=== PATIENT | female | born 1990 | race American Indian/Alaskan Native ===

== ENCOUNTER 2016-12-08 13:09 | Emergency (ER) | payer MEDICAID ==
[2016-12-08 13:17] VITALS: O2SAT 100
[2016-12-08] MEDS ORDERED: Sodium Chloride 0.9% 1,000 ML IV ONE (13:27)
[2016-12-08] MEDS ORDERED: Sodium Chloride 0.9% 1,000 ML ONE (13:31)
--- NOTE | 2016-12-08 13:38 | C.PDOC ---
History Of Present Illness 26 year old female, with no significant PMHx, presents to the ED for evaluation of generalized weakness and lightheadedness which began yesterday. Patient reports she had two syncopal episodes yesterday, each lasting a few seconds in duration. Patient also reports nausea and two episodes of vomiting. Patient denies fever, chills, abdominal pain, diarrhea, seizures, sick contacts, or prior history of similar symptoms. LMP was during first week of November. Time Seen by Provider: 12/08/16 13:23 Chief Complaint (Nursing): GI Problem History Per: Patient History/Exam Limitations: no limitations Onset/Duration Of Symptoms: Hrs Current Symptoms Are (Timing): Still Present Number Of Syncopal Episodes: 2 Associated Symptoms Preceding Syncopal Episode: Lightheadedness Fall Associated With With Symptoms: No Injury As Result Of Fall Additional History Per: Patient Past Medical History Reviewed: Historical Data, Nursing Documentation, Vital Signs Vital Signs: Last Vital Signs Temp 98.1 F 12/08/16 13:13 Pulse 87 12/08/16 13:13 Resp 16 12/08/16 13:13 BP 105/70 12/08/16 13:13 Pulse Ox 100 12/08/16 14:00 - Medical History PMH: No Chronic Diseases Surgical History: No Surg Hx Family History: States: Unknown Family Hx - Social History Hx Alcohol Use: No Hx Substance Use: No - Immunization History Hx Tetanus Toxoid Vaccination: No Hx Influenza Vaccination: No Hx Pneumococcal Vaccination: No Review Of Systems Constitutional: Positive for: Weakness. Negative for: Fever, Chills Gastrointestinal: Positive for: Nausea, Vomiting. Negative for: Abdominal Pain , Diarrhea Neurological: Positive for: Other (lightheadedness ). Negative for: Seizures Physical Exam - Physical Exam Appears: Non-toxic, No Acute Distress Skin: Normal Color, Warm, Dry Head: Atraumatic, Normacephalic Eye(s): bilateral: Normal Inspection, PERRL, EOMI Oral Mucosa: Moist Neck: Supple Chest: Symmetrical, No Deformity, No Tenderness Cardiovascular: Rhythm Regular, No Murmur Respiratory: Normal Breath Sounds, No Rales, No Rhonchi, No Wheezing Gastrointestinal/Abdominal: Soft, No Tenderness, No Guarding, No Rebound Extremity: Normal ROM, Capillary Refill (less than 2 seconds ) Neurological/Psych: Oriented x3, Normal Speech, Normal Cognition Gait: Steady ED Course And Treatment - Laboratory Results Result Diagrams: 12/08/16 13:39 12/08/16 13:39 Lab Interpretation: No Acute Changes Urine POC: Negative O2 Sat by Pulse Oximetry: 100 (on RA) Pulse Ox Interpretation: Normal Progress Note: Bloodwork and urinalysis ordered and reviewed. Zofran IVP and IV Fluids administered. Reevaluation Time: 15:34 Reassessment Condition: Improved (after IV Zofran and fluids.) Disposition Counseled Patient/Family Regarding: Studies Performed, Diagnosis, Need For Followup, Rx Given - Disposition Referrals: [facility] [Outside] Disposition: HOME/ ROUTINE Disposition Time: 15:36 Condition: IMPROVED Prescriptions: Ondansetron ODT [Zofran ODT] 1 odt PO BID PRN #6 odt PRN Reason: Nausea/Vomiting Instructions: Acute Nausea and Vomiting (ED), Syncope (ED) Forms: [facility] [employer] [facility] (Eritrean) - Clinical Impression Clinical Impression: Nausea and vomiting, Syncope - Scribe Statement The provider has reviewed the documentation as recorded by the Scribe (Geno Rousseau) Provider Attestation: All medical record entries made by the Scribe were at my direction and personally dictated by me. I have reviewed the chart and agree that the record accurately reflects my personal performance of the history, physical exam, medical decision making, and the department course for this patient. I have also personally directed, reviewed, and agree with the discharge instructions and disposition.
[2016-12-08 13:45] LABS: BASO % 0.3 % (0.0-2.0); HEMATOCRIT 38.2 % (34.0-47.0); LYMPH # 1.3 K/uL (1.0-4.3); LYMPH % 13.1 % (20.0-40.0); MEAN CELL VOLUME 92.6 fL (81.0-99.0); MEAN CORPUSCULAR HEMOGLOBIN 31.7 pg (27.0-31.0); MEAN CORPUSCULAR HGB CONC 34.2 g/dL (33.0-37.0); MEAN PLATELET VOLUME 8.7 fL (7.2-11.7); MONO # 0.2 K/uL (0.0-0.8); MONO % 2.5 % (0.0-10.0); RED CELL DISTRIBUTION WIDTH 13.5 % (11.5-14.5); WHITE BLOOD COUNT 9.8 K/uL (4.8-10.8)
[2016-12-08 14:04] LABS: CHLORIDE 99 mmol/L (98-107); POTASSIUM 3.6 mmol/L (3.6-5.2); SODIUM 135 mmol/L (132-148)
[2016-12-08 14:06] LABS: GFR AFRICAN-AMERICAN > 60
[2016-12-08 14:07] LABS: ALKALINE PHOSPHATASE 91 U/L (38-126); ALT/SGPT 32 U/L (9-52); AST/SGOT 17 U/L (14-36); BILIRUBIN,TOTAL 0.8 mg/dL (0.2-1.3); BLOOD UREA NITROGEN 6 mg/dL (7-17); CARBON DIOXIDE 22 mmol/L (22-30); GLUCOSE,RANDOM 83 mg/dL (65-105); TOTAL PROTEIN 8.7 g/dL (6.3-8.3)
[2016-12-08 14:08] LABS: CALCIUM 9.1 mg/dl (8.6-10.4)
[2016-12-08 15:26] LABS: RBC URINE 1 /hpf (0-3); URINE BACTERIA RARE (<OCC); URINE BILIRUBIN NEGATIVE (NEGATIVE); URINE BLOOD NEGATIVE (NEGATIVE); URINE COLOR Straw (YELLOW); URINE GLUCOSE (UA) NORMAL (Normal); URINE KETONE TRACE mg/dL (NEGATIVE); URINE LEUKOCYTE ESTERASE NEG Leu/uL (Negative); URINE PROTEIN NEGATIVE (NEGATIVE); URINE UROBILINOGEN NORMAL mg/dL (0.2-1.0); WBC URINE 1 /hpf (0-5)
[2016-12-08 15:46] VITALS: BP 90/51; PULSE 69; RESP 18; TEMP 97.9
== END 2016-12-08 15:47 | disposition home or self-care (01) ==
LOC: C.ER 13:09
DX: R11.2 Nausea with vomiting, unspecified (principal); R55 Syncope and collapse
CPT/HCPCS: 80053; 81001; 84703; 85025; 96361; 96374; 99285; J2405; J7040

== ENCOUNTER 2016-12-12 11:52 | Emergency (ER) | payer MEDICAID ==
[2016-12-12 12:05] VITALS: RESP 18; O2SAT 100
--- NOTE | 2016-12-12 13:29 | C.PDOC ---
History Of Present Illness 26 year old female presents to the ED via EMS for evaluation of generalized weakness after she was exposed to carbon monoxide at her home. Patient notes she has been staying home for the past couple days with her windows closed. Patient states she was seen in the ED for complaints of abdominal pain, but denies such symptoms currently. Patient denies headache, dizziness, nausea, vomiting at this time. Time Seen by Provider: 12/12/16 12:00 Chief Complaint (Nursing): Abdominal Pain History Per: Patient, EMS History/Exam Limitations: no limitations Onset/Duration Of Symptoms: Hrs Current Symptoms Are (Timing): Still Present Additional History Per: Patient Past Medical History Reviewed: Historical Data, Nursing Documentation, Vital Signs Vital Signs: Last Vital Signs Temp 97.8 F 12/12/16 12:04 Pulse 85 12/12/16 12:04 Resp 18 12/12/16 13:38 BP 125/81 12/12/16 12:04 Pulse Ox 100 12/12/16 13:42 - Medical History PMH: No Chronic Diseases Surgical History: No Surg Hx Family History: States: Unknown Family Hx - Social History Hx Alcohol Use: No Hx Substance Use: No - Immunization History Hx Tetanus Toxoid Vaccination: No Hx Influenza Vaccination: No Hx Pneumococcal Vaccination: No Review Of Systems Constitutional: Positive for: Weakness Gastrointestinal: Negative for: Nausea, Vomiting, Abdominal Pain Neurological: Negative for: Headache, Dizziness Physical Exam - Physical Exam Appears: Non-toxic, No Acute Distress Skin: Normal Color, Warm, Dry Head: Atraumatic, Normacephalic Eye(s): bilateral: Normal Inspection Oral Mucosa: Moist Neck: Supple Chest: Symmetrical, No Deformity, No Tenderness Cardiovascular: Rhythm Regular, No Murmur Respiratory: Normal Breath Sounds, No Rales, No Rhonchi, No Wheezing Extremity: Normal ROM, Capillary Refill (less than 2 seconds ) Neurological/Psych: Oriented x3, Normal Speech, Normal Cognition Gait: Steady ED Course And Treatment O2 Sat by Pulse Oximetry: 100 (on RA) Pulse Ox Interpretation: Normal Disposition - Disposition Referrals: [facility] [Outside] Disposition: HOME/ ROUTINE Disposition Time: 13:26 Condition: STABLE Additional Instructions: Do not go back to that home with the carbon monoxide leak. Follow up with your doctor or the clinic. Instructions: Carbon Monoxide Poisoning (ED) Forms: [employer] (Bulgarian) - Clinical Impression Clinical Impression: Carbon monoxide exposure - Scribe Statement The provider has reviewed the documentation as recorded by the Scribe (Geno Rousseau) Provider Attestation: All medical record entries made by the Scribe were at my direction and personally dictated by me. I have reviewed the chart and agree that the record accurately reflects my personal performance of the history, physical exam, medical decision making, and the department course for this patient. I have also personally directed, reviewed, and agree with the discharge instructions and disposition.
[2016-12-12 13:57] VITALS: BP 127/74; PULSE 59; TEMP 98
== END 2016-12-12 13:38 | disposition home or self-care (01) ==
LOC: C.ER 11:52
DX: Z77.29 Contact with and (suspected) exposure to other hazardous substances (principal)

== ENCOUNTER 2018-03-01 16:04 | Emergency (ER) | payer MEDICAID ==
[2018-03-01 16:20] VITALS: BP 95/65; PULSE 77; RESP 18; TEMP 97.5; O2SAT 100
[2018-03-01 17:43] LABS: SQUAMOUS EPITHIAL 3 /hpf (0-5); URINE BACTERIA OCC (<OCC); URINE BILIRUBIN NEGATIVE (NEGATIVE); URINE BLOOD NEGATIVE (NEGATIVE); URINE CLARITY Hazy (Clear); URINE COLOR Yellow (YELLOW); URINE GLUCOSE (UA) NORMAL (Normal); URINE LEUKOCYTE ESTERASE NEG Leu/uL (Negative); URINE PROTEIN NEGATIVE (NEGATIVE); URINE UROBILINOGEN NORMAL mg/dL (0.2-1.0)
--- NOTE | 2018-03-01 17:57 | C.PDOC ---
History Of Present Illness 27 year old female presents to the emergency department with complaints of 5 months of itching around her anus. Patient states that she was evaluated at [facility] in September, and does not know what she was diagnosed with. Patient states that she feels as if she has the same itch in her vaginal area. She also reports not being able to have a bowel movement since Friday, and states that she has pain to her left upper quadrant. Patient denies nausea, vomiting, diarrhea, abnormal bleeding, and urinary symptoms. Patient's PMD is Dr. Kelly De La Cruz. Time Seen by Provider: 03/01/18 16:58 Chief Complaint (Nursing): GI Problem History Per: Patient History/Exam Limitations: no limitations Onset/Duration Of Symptoms: Other (5 months) Current Symptoms Are (Timing): Still Present Location Of Pain/Discomfort: LUQ Quality Of Discomfort: "Pain" Associated Symptoms: Constipation Past Medical History Reviewed: Historical Data, Nursing Documentation, Vital Signs Vital Signs: Last Vital Signs Temp 97.5 F L 03/01/18 16:15 Pulse 77 03/01/18 16:15 Resp 18 03/01/18 16:15 BP 95/65 L 03/01/18 16:15 Pulse Ox 100 03/01/18 16:15 - Medical History PMH: No Chronic Diseases Surgical History: No Surg Hx Family History: States: No Known Family Hx - Social History Hx Alcohol Use: No Hx Substance Use: No - Immunization History Hx Tetanus Toxoid Vaccination: No Hx Influenza Vaccination: No Hx Pneumococcal Vaccination: No Review Of Systems Except As Marked, All Systems Reviewed And Found Negative. Gastrointestinal: Positive for: Abdominal Pain, Other (anal itch). Negative for: Nausea, Vomiting, Diarrhea Physical Exam - Physical Exam Appears: Non-toxic, No Acute Distress Skin: Normal Color, Warm, Dry Head: Atraumatic, Normacephalic Eye(s): bilateral: Normal Inspection, PERRL, EOMI Nose: Normal Oral Mucosa: Moist Neck: Normal, Supple Chest: Symmetrical, No Tenderness Cardiovascular: Rhythm Regular, No Murmur Respiratory: Normal Breath Sounds, No Rales, No Rhonchi, No Wheezing Gastrointestinal/Abdominal: Soft, No Tenderness, No Guarding, No Rebound Rectal: No Other (no rash, no erythema, no vesicles or pustules. [employer] Machinist AMISH Rascon) Neurological/Psych: Oriented x3, Normal Speech, Normal Cognition ED Course And Treatment - Laboratory Results Lab Results: Urine Color Yellow (YELLOW) 03/01/18 17:38 Urine Clarity Hazy (Clear) 03/01/18 17:38 Urine pH 6.0 (5.0-8.0) 03/01/18 17:38 Ur Specific Decker 1.011 (1.003-1.030) 03/01/18 17:38 Urine Protein Negative mg/dL (NEGATIVE) 03/01/18 17:38 Urine Glucose (UA) Normal mg/dL (Normal) 03/01/18 17:38 Urine Ketones Negative mg/dL (NEGATIVE) 03/01/18 17:38 Urine Blood Negative (NEGATIVE) 03/01/18 17:38 Urine Nitrate Negative (NEGATIVE) 03/01/18 17:38 Urine Bilirubin Negative (NEGATIVE) 03/01/18 17:38 Urine Urobilinogen Normal mg/dL (0.2-1.0) 03/01/18 17:38 Ur Leukocyte Esterase Neg Alberto/uL (Negative) 03/01/18 17:38 Urine WBC (Auto) 2 /hpf (0-5) 03/01/18 17:38 Urine RBC (Auto) 1 /hpf (0-3) 03/01/18 17:38 Ur Squamous Epith Cells 3 /hpf (0-5) 03/01/18 17:38 Urine Bacteria Occ (<OCC) H 03/01/18 17:38 O2 Sat by Pulse Oximetry: 100 (RA) Pulse Ox Interpretation: Normal Medical Decision Making Medical Decision Making: Plan: POC Urine Urinalysis Patient increased fiber intake and is still constipated. Patient suggested to use over the counter laxatives such as Miralax. Patient instructed to f/u with Dr. De La Cruz. Disposition Counseled Patient/Family Regarding: Studies Performed, Diagnosis, Need For Followup - Disposition Referrals: Rose Mary De La Cruz MD [Staff Provider] - Disposition: HOME/ ROUTINE Disposition Time: 17:56 Condition: STABLE Additional Instructions: MARISA MICHAEL, thank you for letting us take care of you today. Your provider was Lidia Sanchez MD and you were treated for ABDOMINAL PAIN. The emergency medical care you received today was directed at your acute symptoms. If you were prescribed any medication, please fill it and take as directed. It may take several days for your symptoms to resolve. Return to the Emergency Department if your symptoms worsen, do not improve, or if you have any other problems. Please contact your doctor in 1-2 days for a follow up appointment. Bring any paperwork you were given at discharge with you along with any medications you are taking to your follow up visit. Our treatment cannot replace ongoing medical care by a primary care provider outside of the emergency department. Thank you for allowing the [facility] team to be part of your care today. Instructions: Constipation, Adult (DC), Acute Abdomen (Belly Pain), Adult (DC) Forms: [employer] [facility] (Sudanese), General Discharge Instructions - POA Present On Arrival: None - Clinical Impression Clinical Impression: Abdominal pain, Skin irritation, Constipation - Scribe Statement The provider has reviewed the documentation as recorded by the Scribe (Michael Matos) Provider Attestation: All medical record entries made by the Scribe were at my direction and personally dictated by me. I have reviewed the chart and agree that the record accurately reflects my personal performance of the history, physical exam, medical decision making, and the department course for this patient. I have also personally directed, reviewed, and agree with the discharge instructions and disposition.
== END 2018-03-01 18:12 | disposition home or self-care (01) ==
LOC: C.ER 16:04
DX: K59.00 Constipation, unspecified (principal); R10.9 Unspecified abdominal pain; L98.9 Disorder of the skin and subcutaneous tissue, unspecified

== ENCOUNTER 2018-04-09 12:55 | Inpatient (IN) | payer MEDICAID ==
[2018-04-09 13:01] VITALS: BMI 18.8
[2018-04-09 15:34] LABS: BASO % 0.4 % (0.0-2.0); HEMOGLOBIN 13.2 g/dL (11.0-16.0); LYMPH # 1.3 K/uL (1.0-4.3); LYMPH % 14.7 % (20.0-40.0); MEAN CELL VOLUME 94.3 fL (81.0-99.0); MEAN CORPUSCULAR HEMOGLOBIN 31.1 pg (27.0-31.0); MEAN PLATELET VOLUME 8.2 fL (7.2-11.7); MONO # 0.3 K/uL (0.0-0.8); MONO % 3.7 % (0.0-10.0); NEUT # 7.4 K/uL (1.8-7.0); NEUT % 81.2 % (50.0-75.0); RBC 4.23 Mil/uL (3.80-5.20); RED CELL DISTRIBUTION WIDTH 13.4 % (11.5-14.5); WHITE BLOOD COUNT 9.1 K/uL (4.8-10.8)
--- NOTE | 2018-04-09 15:35 | C.PDOC ---
History Of Present Illness 27 y/o F BIBEMS for suicidal ideations. Patient posted a tweet on Twitter expressing suicidal thoughts. Another individual saw the post and contacted 911. The patient states in the ED that she has been having suicidal thoughts. Will not discuss further about any plan. She refuses to provide blood work and urine willingly but stated that she will allow us to draw it without physical restraint, stating that it will be against her will. She says, "You can beat me!" Full HPI/ROS unobtainable secondary to patient's lack of cooperation. Patient asked for police district switchboard operator to be called to ED to inform her that drawing blood work and urine against her will in a psychiatric setting is legal. Time Seen by Provider: 04/09/18 13:28 Chief Complaint (Nursing): Psychiatric Evaluation Past Medical History Vital Signs: Last Vital Signs Temp 98.7 F 04/09/18 13:31 Pulse 91 H 04/09/18 13:31 Resp 16 04/09/18 13:31 BP 119/81 04/09/18 13:31 Pulse Ox 100 04/09/18 13:31 Family History: States: Unknown Family Hx - Social History Hx Alcohol Use: No Hx Substance Use: No - Immunization History Hx Tetanus Toxoid Vaccination: No Hx Influenza Vaccination: No Hx Pneumococcal Vaccination: No Review Of Systems Review Of Systems: ROS cannot be obtained secondary to pt's inabilty to answer questions. Physical Exam - Physical Exam Additional Physical Exam Comments: Gen: No acute distress Head: NC/AT Eyes: No icterus ENT: MMM CV: Regular rate Resp: No accessory muscle use Skin: No facial rash Extremities: No deformity Neuro: Alert ED Course And Treatment - Laboratory Results Result Diagrams: 04/09/18 15:29 04/09/18 15:29 O2 Sat by Pulse Oximetry: 100 Medical Decision Making Medical Decision Making: Medically cleared. Disposition - Disposition Disposition: HOSPITALIZED Disposition Time: 16:30 Condition: GOOD Forms: [facility] (Andorran) - Clinical Impression Clinical Impression: Major depressive disorder, recurrent episode, severe, with psychotic behavior
[2018-04-09 15:44] LABS: ALB/GLOB RATIO 1.3 (1.0-2.1); ALBUMIN 5.2 g/dL (3.5-5.0); ALT/SGPT 7 U/L (9-52); AST/SGOT 18 U/L (14-36); BLOOD UREA NITROGEN 7 mg/dL (7-17); CALCIUM 9.8 mg/dl (8.6-10.4); GFR NON-AFRICAN AMERICAN > 60
[2018-04-09 16:35] LABS: HCG,QUALITATIVE URINE NEGATIVE (NEGATIVE)
[2018-04-09 16:39] LABS: SQUAMOUS EPITHIAL 3 /hpf (0-5); URINE BACTERIA RARE (<OCC); URINE BILIRUBIN NEGATIVE (NEGATIVE); URINE BLOOD 1+ (NEGATIVE); URINE CLARITY Hazy (Clear); URINE COLOR Yellow (YELLOW); URINE GLUCOSE (UA) NORMAL (Normal); URINE LEUKOCYTE ESTERASE NEG Leu/uL (Negative); URINE PROTEIN NEGATIVE (NEGATIVE); URINE UROBILINOGEN NORMAL mg/dL (0.2-1.0)
[2018-04-09 17:03] LABS: BARBITURATES, UR NEGATIVE (NEGATIVE); BENZODIAZEPINES, UR NEGATIVE (NEGATIVE); OPIATES, UR NEGATIVE (NEGATIVE); PHENCYCLIDINE, UR NEGATIVE (NEGATIVE)
--- NOTE | 2018-04-09 22:45 | PCM.BM ---
<Vikram De Oliveira - Last Filed: 04/09/18 22:43> Treatment Plan Problems - Problems identified on initial assessmt Ineffective Coping Date Initiated: 04/09/18 Time Initiated: 18:45 Assessment reference: NA Status: Active Suicidal Date Initiated: 04/09/18 Time Initiated: 18:45 Assessment reference: NA Status: Active Treatment assets and liabiliti Patient Assests: ADL independent, negotiates basic needs Patient Liabilities: poor support system - Milieu Protocol Maintain good personal hygiene: daily Encourage regular showers, daily Remind patient to perform daily oral care, every shift Assist patient to perform ADL's Conduct patient checks and document Observation sheet: Q15 minutes Maintain personal safety: every shift Educate patient to report safety concerns to staff, every shift Monitor environment for contraband/sharps Medication safety: Monitor for expected outcome, potential side effects: every shift, Assess barriers to learning: every shift, Assess readiness for medication education: every shift <Reena Collins - Last Filed: 04/10/18 11:18> - Diagnosis (1) Schizophrenia Status: Acute Interventions: 04/10/18 11:18 * Assess/adjust medications daily and /or as needed * See patient on an individual basis 7x/week to assess status of hallucinations * Discuss risks, benefits, side effects and alternatives of medications * <Hailey Baldwin - Last Filed: 04/10/18 14:12> Family Contact Family involvement: Family/SO is involved Family contact: Patient agrees to contact, Family has been contacted by patient - Goals for Treatment Patient goals for treatment: "I want to go to an outpatient program." Discharge/Continuing Care - Education Needs Education Needs: Patient Medication, Patient Diagnosis/Disease Process, Patient Coping Skills, Patient Placement options, Patient Community resources - Discharge Discharge Criteria: Free of Suicidal thoughts, Normal sleep pattern, Ability to care for self, No longer exhibiting s/s of withdrawal, Reduction of target symp toms Discharge to:: Home, With Family - Treatment Team Participation Discussed with Family/SO: No Was Patient/Family/SO present at Treatment Team Meeting: Yes
--- NOTE | 2018-04-10 11:00 | PCM.PSYCH ---
Initial Psychiatric Evaluation - Initial Psychiatric Evaluation Type of Admission: Voluntary Legal Status: Capacity Chief Complaint (in patient's own words): I was feeling depressed and suicidal. History of Present Illness and Precipitating Events: Patient is a 27 year old -[place] female, who was escorted to the ED by EMS after making suicidal statement on social media/Twitter. Patient appeared disorganized and internally preoccupied throughout the interview. She appeared to have loose associations. She reports history of one inpatient psychiatric hospitalization at [facility] as per the [facility] last year. She stopped taking her medications, as per the patient. She remains suspicious, paranoid and delusional. She was superficially cooperative but guarded but the details. She was a poor historian. Patient reports of having PTSD secondary to trauma she experienced at [facility] six months ago. Patient remained guarded but the details of the trauma and mentioned that it was all in her medical records. She reports depressed mood and at times feelings of hopelessness and worthlessness. She reports sleep and poor appetite. She also reports paranoia but denies any auditory of visual hallucinations. When asked about any history of abuse she would not answer and stared blankly ahead for 2 minutes. She denies any drinking or any substance abuse. Past medical history None reported Current Medications: Active Medications Generic Name Dose Route Start Last Admin Trade Name Freq PRN Reason Stop Dose Admin Pneumococcal Polyvalent Vaccine 0.5 ml 04/12/18 10:00 Pneumovax 23 Vaccine IM 04/12/18 10:01 .ONCE ONE Past Psychiatric History - Past Psychiatric History Previous Treatment History: Inpatient Pertinent Medical Hx (Current Medical&Sleep Prob, Allergies): Allergies Allergy/AdvReac Type Severity Reaction Status Date / Time No Known Allergies Allergy Verified 04/09/18 13:00 No Known Home Med 04/09/18 Review of Systems - Review of Systems All systems: reviewed and no additional remarkable complaints except - Psychiatric Psychiatric: Anxiety, Irritability, Suicidal Ideation Mental Status Examination - Personal Presentation Personal Presentation: Looks stated age - Affect Affect: Constricted, Depressed - Motor Activity Motor Activity: Calm - Reliability in Providing Information Reliability in Providing Information: Poor, due to alteration in thoughts, Poor, due to altered mood - Speech Speech: Disorganized - Mood Mood: Anxious - Formal Thought Process Formal Thought Process: Delusions, Paranoia, Loosening of associations - Obsessions/Compulsions Obsessions: No Compulsions: No - Cognitive Functions Orientation: Person, Place, Situation, Time Sensorium: Alert Attention/Concentration: Attentive Abstract Thinking: [place] Estimate of Intelligence: Below average Judgement: Imparied, as evidence by: Poor judgement, Imparied, as evidence by: Lack of insight into illness - Risk Risk: Suicidal, Diminished functioning - Limitations Limitations: Living alone DSM 5 DX - DSM 5 DSM 5 Diagnosis: Schizoaffective disorder depressive type - Recommended/Plan of Treatment Treatment Recommendations and Plan of Treatment: Schizoaffective disorder depressive type -CBT -Psychoeducation -Supportive therapy and group therapy -Olanzapine for psychosis -Neurontin for augmentation -Trazodone for insomnia -Remeron for depression - Smoking Cessation Smoking Cessation Initiated: No
[2018-04-12] MEDS ORDERED: Pneumococcal 23-Valent Vaccine IM ONE (10:00)
--- NOTE | 2018-04-13 09:51 | PCM.BM ---
Treatment Plan Problems - Problems identified on initial assessmt Ineffective Coping Date Initiated: 04/09/18 Time Initiated: 18:45 Assessment reference: NA Status: Active Suicidal Date Initiated: 04/09/18 Time Initiated: 18:45 Assessment reference: NA Status: Active Treatment assets and liabiliti Patient Assests: ADL independent, negotiates basic needs Patient Liabilities: poor support system - Milieu Protocol Maintain good personal hygiene: daily Encourage regular showers, daily Remind patient to perform daily oral care, every shift Assist patient to perform ADL's Conduct patient checks and document Observation sheet: Q15 minutes Maintain personal safety: every shift Educate patient to report safety concerns to staff, every shift Monitor environment for contraband/sharps Medication safety: Monitor for expected outcome, potential side effects: every shift, Assess barriers to learning: every shift, Assess readiness for medication education: every shift Milieu Narrative: Schizoaffective disorder depressive type -CBT -Psychoeducation -Supportive therapy and group therapy -Olanzapine for psychosis -Neurontin for augmentation -Trazodone for insomnia -Remeron for depression Family Contact Family involvement: Family/SO is involved Family contact: Patient agrees to contact, Family has been contacted by patient - Goals for Treatment Patient goals for treatment: "I want to go to an outpatient program." Discharge/Continuing Care - Education Needs Education Needs: Patient Medication, Patient Diagnosis/Disease Process, Patient Coping Skills, Patient Placement options, Patient Community resources - Discharge Discharge Criteria: Free of Suicidal thoughts, Normal sleep pattern, Ability to care for self, No longer exhibiting s/s of withdrawal, Reduction of target symptoms Discharge to:: Home, With Family - Treatment Team Participation Patient/Family/SO Statement: Schizoaffective disorder depressive type -CBT -Psychoeducation -Supportive therapy and group therapy -Olanzapine for psychosis -Neurontin for augmentation -Trazodone for insomnia -Remeron for depression Discussed with Family/SO: No Was Patient/Family/SO present at Treatment Team Meeting: Yes Treatment Plan Review - Problem Ineffective Coping Time Initiated: 18:45 Suicidal Time Initiated: 18:45 - Discharge / Continuing Care Discharge to:: Home, With Family Behavioral Health Services: Intensive Outpatient Health Needs: Follow up care/test, Medications/Rx
--- NOTE | 2018-04-13 10:48 | PCM.PYCHPN ---
Psychiatric Progress Note - Psychiatric Progress Note Patient seen today, length of contact: 15 min Patient Chief Complaint: I m feeling little better.' Problems Identified/Issues Discussed: Patient was seen and evaluated, chart reviewed and discussed the staff. As per the staff he remained isolative and withdrawn and appears paranoid and delusional. She still appears somewhat disorganized and internally preoccupied. She is taking medication but denies any side effects. Symptoms are improving gradually but she needs to stay longer for the stabilization. Supportive therapy was given. Medication Change: Yes Medical Record Reviewed: Yes Mental Status Examination - Cognitive Function Orientation: Person, Place, Situation, Time Memory: Intact Attention: WNL Concentration: Poor Association: Loose Fund of Knowledge: Poor - Mood Mood: Anxious - Affect Affect: Constricted, Depressed - Formal Thought Process Formal Thought Process: Delusions, Paranoia, Loosening of associations - Suicidal Ideation Suicidal Ideation: No - Homicidal Ideation Homicidal Ideation: No Goal/Treatment Plan - Goal/Treatment Plan Need for Continued Stay: Remain at risks for inpatient hospitalization Progress Toward Problem(s) and Goals/Treatment Plan: Schizoaffective disorder depressive type -CBT -Psychoeducation -Supportive therapy and group therapy -Olanzapine for psychosis -Neurontin for augmentation -Trazodone for insomnia -Remeron for depression
[2018-04-14] MEDS ORDERED: DiphenhydrAMINE 50 mg/ml Inj IM PRN (12:18)
--- NOTE | 2018-04-16 10:57 | PCM.PYCHPN ---
Psychiatric Progress Note - Psychiatric Progress Note Patient seen today, length of contact: 15 min Patient Chief Complaint: I m feeling little better.' Problems Identified/Issues Discussed: Patient was seen and evaluated, chart reviewed and discussed the staff. She still appears somewhat disorganized and internally preoccupied. As per the staff he remained isolative and withdrawn and appears paranoid and delusional. She is taking medication but denies any side effects. Symptoms are improving gradually but she needs to stay longer for the stabilization. Supportive therapy was given. Medication Change: Yes Medical Record Reviewed: Yes Mental Status Examination - Cognitive Function Orientation: Person, Place, Situation, Time Memory: Intact Attention: WNL Concentration: Poor Association: Loose Fund of Knowledge: Poor - Mood Mood: Anxious - Affect Affect: Constricted, Depressed - Formal Thought Process Formal Thought Process: Delusions, Paranoia, Loosening of associations - Suicidal Ideation Suicidal Ideation: No - Homicidal Ideation Homicidal Ideation: No Goal/Treatment Plan - Goal/Treatment Plan Need for Continued Stay: Remain at risks for inpatient hospitalization Progress Toward Problem(s) and Goals/Treatment Plan: Schizoaffective disorder depressive type -CBT -Psychoeducation -Supportive therapy and group therapy -Olanzapine for psychosis -Neurontin for augmentation -Trazodone for insomnia -Remeron for depression
--- NOTE | 2018-04-17 12:09 | PCM.BM ---
<Rose Bell - Last Filed: 04/17/18 12:08> Treatment Plan Problems - Problems identified on initial assessmt Ineffective Coping Date Initiated: 04/09/18 Time Initiated: 18:45 Assessment reference: NA Status: Active Suicidal Date Initiated: 04/09/18 Time Initiated: 18:45 Assessment reference: NA Status: Active Treatment assets and liabiliti Patient Assests: ADL independent, negotiates basic needs Patient Liabilities: poor support system - Milieu Protocol Maintain good personal hygiene: daily Encourage regular showers, daily Remind patient to perform daily oral care, every shift Assist patient to perform ADL's Conduct patient checks and document Observation sheet: Q15 minutes Maintain personal safety: every shift Educate patient to report safety concerns to staff, every shift Monitor environment for contraband/sharps Medication safety: Monitor for expected outcome, potential side effects: every shift, Assess barriers to learning: every shift, Assess readiness for medication education: every shift Milieu Narrative: Schizoaffective disorder depressive type -CBT -Psychoeducation -Supportive therapy and group therapy -Olanzapine for psychosis -Neurontin for augmentation -Trazodone for insomnia -Remeron for depression Family Contact Family involvement: Family/SO is involved Family contact: Patient agrees to contact, Family has been contacted by patient - Goals for Treatment Patient goals for treatment: "I want to go to an outpatient program." Discharge/Continuing Care - Education Needs Education Needs: Patient Medication, Patient Diagnosis/Disease Process, Patient Coping Skills, Patient Placement options, Patient Community resources - Discharge Discharge Criteria: Free of Suicidal thoughts, Normal sleep pattern, Ability to care for self, No longer exhibiting s/s of withdrawal, Reduction of target symptoms Discharge to:: Home, With Family - Treatment Team Participation Patient/Family/SO Statement: Schizoaffective disorder depressive type -CBT -Psychoeducation -Supportive therapy and group therapy -Olanzapine for psychosis -Neurontin for augmentation -Trazodone for insomnia -Remeron for depression Discussed with Family/SO: No Was Patient/Family/SO present at Treatment Team Meeting: Yes Treatment Plan Review - Problem Ineffective Coping Time Initiated: 18:45 Suicidal Time Initiated: 18:45 - Discharge / Continuing Care Discharge to:: Home, With Family Behavioral Health Services: Outpatient therapy Health Needs: Medications/Rx <Eleni Rodriguez - Last Filed: 04/17/18 15:15> Treatment Plan Review - Problem Ineffective Coping Date Initiated: 04/17/18 Time Initiated: 15:14 Progress toward outcomes: improved Suicidal Date Initiated: 04/17/18 Time Initiated: 15:15 Progress toward outcomes: resolved <Reena Collins - Last Filed: 04/18/18 01:29> - Diagnosis (1) Schizophrenia Status: Acute Interventions: 04/18/18 01:28 * Assess/adjust medications daily and /or as needed * See patient on an individual basis 7x/week to assess status of hallucinations * Discuss risks, benefits, side effects and alternatives of medications *
[2018-04-17] MEDS ORDERED: Aluminum Hydroxide/Magnesium Hydroxide Susp (30 mL) PO PRN (15:35)
--- NOTE | 2018-04-18 23:00 | PCM.PYCHPN ---
Psychiatric Progress Note - Psychiatric Progress Note Patient seen today, length of contact: 15 min Patient Chief Complaint: I am feeling better. Problems Identified/Issues Discussed: Patient seen, chart reviewed, case discussed with the staff. Issues related to illness and treatment were discussed with the patient and staff. Reported compliant with treatment with no adverse effects. Tolerating treatment very well. Mood reported as okay. Affect inappropriate, appeared flat. Patient initially sign 48-hour notice for discharge, ending today. Discussed with patient about staying treatment. Later patient recent the notice for discharge. During discussion patient was suspicious about the staff. Aftercare discussed with the patient. Patient denied any delusions, auditory or visual hallucinations, no suicidal ideations or homicidal ideations at the time of evaluation Medical Problems: None reported Diagnostic Results: Reviewed Medication Change: No Medical Record Reviewed: Yes Mental Status Examination - Cognitive Function Orientation: Person, Place, Situation, Time Memory: Intact Attention: WNL Concentration: WNL Association: WNL Fund of Knowledge: WNL Decription of patient's judgement and insights: Poor - Mood Mood: Neutral - Affect Affect: Blunted - Speech Speech: Appropriate - Formal Thought Process Formal Thought Process: Delusions, Loosening of associations - Suicidal Ideation Suicidal Ideation: No - Homicidal Ideation Homicidal Ideation: No Goal/Treatment Plan - Goal/Treatment Plan Need for Continued Stay: Remain at risks for inpatient hospitalization, Discharge may exacerbated symptoms, Severe functional impairment Progress Toward Problem(s) and Goals/Treatment Plan: Patient education. Supportive therapy. Continue treatment as before. Estimated Date of D/C: 04/20/18 - Smoking Cessation Smoking Cessation Initiated: No
[2018-04-20 06:17] VITALS: O2SAT 96
--- NOTE | 2018-04-21 12:39 | PCM.PYCHPN ---
Psychiatric Progress Note - Psychiatric Progress Note Patient seen today, length of contact: 15 min Patient Chief Complaint: I m feeling little better.' Problems Identified/Issues Discussed: Patient was seen and evaluated, chart reviewed and discussed the staff. As per the staff he remained isolative and withdrawn and appears paranoid and delusional. She still appears somewhat disorganized and internally preoccupied. She is taking medication but denies any side effects. Symptoms are improving gradually but she needs to stay longer for the stabilization. Supportive therapy was given. Medication Change: No Medical Record Reviewed: Yes Mental Status Examination - Cognitive Function Orientation: Person, Place, Situation, Time Memory: Intact Attention: WNL Concentration: Poor Association: Loose Fund of Knowledge: Poor - Mood Mood: Anxious - Affect Affect: Blunted - Speech Speech: Appropriate - Formal Thought Process Formal Thought Process: Delusions, Loosening of associations - Suicidal Ideation Suicidal Ideation: No - Homicidal Ideation Homicidal Ideation: No Goal/Treatment Plan - Goal/Treatment Plan Need for Continued Stay: Remain at risks for inpatient hospitalization, Discharge may exacerbated symptoms, Severe functional impairment Progress Toward Problem(s) and Goals/Treatment Plan: Schizoaffective disorder depressive type -CBT -Psychoeducation -Supportive therapy and group therapy -Olanzapine for psychosis -Neurontin for augmentation -Trazodone for insomnia -Remeron for depression -Geodon for psychosis Estimated Date of D/C: 04/23/18
--- NOTE | 2018-04-21 12:41 | PCM.PYCHPN ---
Psychiatric Progress Note - Psychiatric Progress Note Patient seen today, length of contact: 15 min Patient Chief Complaint: I m feeling little better.' Problems Identified/Issues Discussed: Patient was seen and evaluated, chart reviewed and discussed the staff. As per the staff she appears much better than before. She appears more organized and less internally preoccupied than before. She is is less delusional and less paranoid and reports improvement in her mood. She denies any auditory or visual hallucinations. She is taking medication but denies any side effects. Symptoms are improving gradually but she needs to stay longer for the stabilization. Supportive therapy was given. Medication Change: No Medical Record Reviewed: Yes Mental Status Examination - Cognitive Function Orientation: Person, Place, Situation, Time Memory: Intact Attention: WNL Concentration: WNL Association: Loose Fund of Knowledge: WNL - Mood Mood: Anxious - Affect Affect: Blunted - Speech Speech: Appropriate - Formal Thought Process Formal Thought Process: Loosening of associations - Suicidal Ideation Suicidal Ideation: No - Homicidal Ideation Homicidal Ideation: No Goal/Treatment Plan - Goal/Treatment Plan Need for Continued Stay: Remain at risks for inpatient hospitalization, Discharge may exacerbated symptoms, Severe functional impairment Progress Toward Problem(s) and Goals/Treatment Plan: Schizoaffective disorder depressive type -CBT -Psychoeducation -Supportive therapy and group therapy -Olanzapine for psychosis -Neurontin for augmentation -Trazodone for insomnia -Remeron for depression -Geodon for psychosis Estimated Date of D/C: 04/23/18
[2018-04-21 17:34] LABS: BASO % 0.4 % (0.0-2.0); EOS # 0.1 K/uL (0.0-0.7); EOS % 0.6 % (0.0-4.0); HEMOGLOBIN 12.5 g/dL (11.0-16.0); LYMPH # 2.8 K/uL (1.0-4.3); LYMPH % 34.2 % (20.0-40.0); MEAN CELL VOLUME 93.4 fL (81.0-99.0); MEAN CORPUSCULAR HEMOGLOBIN 30.3 pg (27.0-31.0); MEAN CORPUSCULAR HGB CONC 32.5 g/dL (33.0-37.0); MEAN PLATELET VOLUME 7.8 fL (7.2-11.7); MONO # 0.4 K/uL (0.0-0.8); MONO % 4.4 % (0.0-10.0); NEUT # 4.9 K/uL (1.8-7.0); NEUT % 60.4 % (50.0-75.0); NRBC % 0.1 % (0.0-2.0); RBC 4.12 Mil/uL (3.80-5.20); RED CELL DISTRIBUTION WIDTH 13.7 % (11.5-14.5); WHITE BLOOD COUNT 8.2 K/uL (4.8-10.8)
[2018-04-21 18:43] LABS: BLOOD UREA NITROGEN 7 mg/dL (7-17); GFR NON-AFRICAN AMERICAN > 60
[2018-04-21 18:44] LABS: ALB/GLOB RATIO 1.5 (1.0-2.1); ALBUMIN 5.1 g/dL (3.5-5.0); ALT/SGPT 25 U/L (9-52); AST/SGOT 30 U/L (14-36); CALCIUM 9.1 mg/dl (8.6-10.4)
[2018-04-22 10:22] VITALS: BP 100/66; PULSE 79; RESP 18; TEMP 98
--- NOTE | 2018-04-22 14:26 | PCM.PYCHDC ---
Mental Status Examination - Mental Status Examination Orientation: Person, Place, Situation, Time Memory: Intact Mood: Neutral Affect: Constricted Speech: Soft Attention: WNL Concentration: WNL Association: WNL Fund of Knowledge: WNL Formal Thought Process: No Impairment Description of patient's judgement and insight: good, fair Psychotic Thoughts and Behaviors: denies any AVH Suicidal Ideation: No Current Homicidal Ideation?: No Discharge Summary - Discharge Note Reason for Hospitalization: Patient is a 27 year old -[place] female, who was escorted to the ED by EMS after making suicidal statement on social media/Twitter. Patient appeared disorganized and internally preoccupied throughout the interview. She appeared to have loose associations. She reports history of one inpatient psychiatric hospitalization at [place] as per the [facility] last year. She stopped taking her medications, as per the patient. She remains suspicious, paranoid and delusional. She was superficially cooperative but guarded but the details. She was a poor historian. Patient reports of having PTSD secondary to [place] [facility] [place]. Patient remained guarded but the details of the trauma and mentioned that it was all in her medical records. She reports depressed mood and at times feelings of hopelessness and worthlessness. She reports sleep and poor appetite. She also reports paranoia but denies any auditory of visual hallucinations. When asked about any history of abuse she would not answer and stared blankly ahead for 2 minutes. She denies any drinking or any substance abuse. Laboratory Data: Abnormal Lab Results 04/21/18 04/21/18 17:24 17:24 WBC 8.2 RBC 4.12 Hgb 12.5 Hct 38.5 MCV 93.4 MCH 30.3 MCHC 32.5 L RDW 13.7 Plt Count 312 MPV 7.8 Neut % (Auto) 60.4 Lymph % (Auto) 34.2 [place] % (Auto) 4.4 Eos % (Auto) 0.6 Baso % (Auto) 0.4 Neut # (Auto) 4.9 Lymph # (Auto) 2.8 [place] # (Auto) 0.4 Eos # (Auto) 0.1 Baso # (Auto) 0.0 Sodium 135 Potassium 4.2 Chloride 102 Carbon Dioxide 25 Anion Gap 12 BUN 7 Creatinine 0.6 L Est GFR ( Amer) > 60 Est GFR (Non-Af Amer) > 60 Random Glucose 101 Calcium 9.1 Total Bilirubin 0.5 AST 30 ALT 25 Alkaline Phosphatase 70 Total Protein 8.4 H Albumin 5.1 H Globulin 3.3 Albumin/Globulin Ratio 1.5 Consultations:: List each consultation separately and include: 1. Reason for request. 2. Findings. 3. Follow-up Summary of Hospital Course include:: 1. Description of specific treatment plan utilized for patients during their course of treatmen. 2. Summarize the time- course for resolution of acute symptoms and/or regressed behaviors. 3. Describe issues identified and worked on during hospitalization. 4. Describe medication utilized. 5. Describe medical problems identified and treated. 6. Reassessment of suicide risk Summary of Hospital Course: During the course of her stay, patient (pt) started progressively improving and no longer remained irritable, depressed, and suicidal. Her mood and anxiety were improved and she started attending groups and meetings and started socializing. Patient denied any feelings of hopelessness, helplessness, and worthlessness, denied any problem with the sleep or appetite, denied suicidal ideation or homicidal ideation. Pt denied any auditory or visual hallucinations. She denied any withdrawal symptoms. Pt was treated with medications along with supportive therapy, milieu therapy and group therapy. Some changes were made in her current medications and patient was discharged on following medications. She tolerated these medications very well and denied any side effects. - Diagnosis (1) Schizophrenia Status: Acute - Final Diagnosis (DSM 5) Condition upon Discharge: GOOD DSM 5: Schizoaffective disorder depressive type Disposition: HOME/ ROUTINE Follow-up Treatment Plan: Followup: She was [place] [facility] [place] progr. Education: Pt was educated and counseled about the risks and benefits of taking and not taking medications. Pt was educated and counseled about the risks of drinking and abusing drugs. Pt was educated and counseled to go to the ER or call 911 if pt develop suicidal ideation or homicidal ideation, worsening of symptoms or severe side effects of the meds. Prescriptions/Medication Reconciliation: OLANZapine [Zyprexa] 20 mg PO HS #30 tab OLANZapine [Zyprexa] 10 mg PO DAILY #30 tab traZODone [Desyrel] 100 mg PO HS #30 tab Ziprasidone [Geodon Cap] 40 mg PO BID #60 cap - Smoking Cessation Smoking Cessation Medication prescribed: No - Antipsychotic Medications Pt discharged on 2 or more routine antipsychotic medications: No
== END 2018-04-22 14:50 | disposition home or self-care (01) | DRG 430 ==
LOC: C.ER 12:55 → C.5E 18:18
PROVIDERS: ADMIT Psychiatry & Neurology Psychiatry; ATTEND Psychiatry & Neurology Psychiatry
PROC: GZHZZZZ Group Psychotherapy (ICD-10-PCS; principal; 2018-04-09)
PROC: GZ56ZZZ Individual Psychotherapy, Supportive (ICD-10-PCS; 2018-04-09)
DX: F33.3 Major depressive disorder, recurrent, severe with psychotic symptoms (principal); F43.10 Post-traumatic stress disorder, unspecified; G47.00 Insomnia, unspecified; R45.851 Suicidal ideations